=== PATIENT | male | born 1950 | race Caucasian/White ===

== ENCOUNTER 2020-10-08 06:03 | Observation (INO) | payer MEDICARE ==
[~2020-10-08] VITALS: Ht 177.8 cm; Wt 105.7 kg
[2020-10-08] VITALS (8 sets, daily range): BP systolic 143–171; BP diastolic 71–86
[~2020-10-08 06:03] MED LIST: SODIUM CHLORIDE 0.9% 1,000 ML IV ONE; SODIUM CHLORIDE 0.9% 1,000 ML ONE
[2020-10-08 06:54] LABS: BASOPHILS % (AUTO) 0.4 % (0.0-2.0); EOSINOPHILS % (AUTO) 0 % (1.0-6.0); HEMATOCRIT 38.3 % (41-53); HEMOGLOBIN 12.9 g/dL (13.5-17.5); LYMPHOCYTES # (AUTO) 2.6 K/uL (1.0-4.8); MEAN CORPUSCULAR HEMOGLOBIN 30.5 pg (26.0-34.0); MEAN CORPUSCULAR HGB CONC 33.6 G/dL (31.0-37.0); MEAN CORPUSCULAR VOLUME 91 fL (80-100); MONOCYTES # (AUTO) 0.6 K/uL (0.1-1.0); MONOCYTES % (AUTO) 8.1 % (2.0-9.0); NEUTROPHILS # (AUTO) 4.1 K/uL (1.8-7.7); NEUTROPHILS % (AUTO) 56.5 % (40.0-70.0); PLATELET COUNT (AUTO) 168 K/uL (150-450); RED BLOOD CELL COUNT(AUTO) 4.21 MIL/uL (4.50-5.90); RED CELL DISTRIBUTION WIDTH 12.8 % (11.5-14.5)
[2020-10-08 07:05] LABS: CREATININE 1.25 mg/dL (0.60-1.30); POTASSIUM 4.4 mmol/L (3.5-5.1)
[2020-10-08] MEDS ORDERED: LEVO50TA11 PO (07:08)
[2020-10-08] MEDS ORDERED: TAMS-13 PO (07:08)
[2020-10-08] MEDS ORDERED: CARV25TA32 PO (07:08)
[2020-10-08] MEDS ORDERED: ASPI-1450 PO (07:08)
[2020-10-08] MEDS ORDERED: CLOP75TA32 PO (07:08)
[2020-10-08] MEDS ORDERED: METF-446 PO (07:08)
[2020-10-08] MEDS ORDERED: ISOS30TA92 PO (07:08)
[2020-10-08] MEDS ORDERED: FINA5TAB41 PO (07:08)
[2020-10-08] MEDS ORDERED: CARB200T6 PO (07:08)
[2020-10-08] MEDS ORDERED: ATOR-2 PO (07:08)
[2020-10-08] MEDS ORDERED: INSU3INS3 SQ (07:08)
[2020-10-08] MEDS ORDERED: EZET10TA13 PO (07:08)
[2020-10-08] MEDS ORDERED: INSU3INS5 SQ (07:08)
[2020-10-08 07:14] LABS: INR 1.1 (0.9-1.1); PROTHROMBIN TIME 11.3 SEC (9.4-11.6)
[2020-10-08] MEDS ORDERED: HEPARIN SODIUM 1000 UNITS/NS 1,000 ML ONE (09:40)
[2020-10-08] MEDS ORDERED: LIDOCAINE/PF 1% 30 ML VIAL ONE (09:40)
[2020-10-08] MEDS ORDERED: IOHEXOL 300 MG/ML 150 ML VIAL ONE (09:40)
[2020-10-08] MEDS ORDERED: SODIUM BICARBONATE 50 MEQ/50 ML VIAL ONE (09:40)
[2020-10-08] MEDS ORDERED: FentaNYL CITRATE PF 100 MCG/2 ML VIAL ONE (10:15)
[2020-10-08] MEDS ORDERED: MIDAZOLAM HCL 2 MG/2 ML VIAL ONE (10:15)
[2020-10-08] MEDS ORDERED: MIDAZOLAM HCL 2 MG/2 ML VIAL IVP ONE (10:30)
[2020-10-08] MEDS ORDERED: IOHEXOL 300 MG/ML 150 ML VIAL IARTER ONE (10:30)
[2020-10-08] MEDS ORDERED: LIDOCAINE 1% 30 ML/SOD BICARB 8.4% 4 ML SQ ONE (10:30)
[2020-10-08] MEDS ORDERED: HEPARIN SODIUM 1000 UNITS/NS 1,000 ML IARTER ONE (10:30)
[2020-10-08] MEDS ORDERED: FentaNYL CITRATE PF 100 MCG/2 ML VIAL IVP ONE (10:30)
[2020-10-08] MEDS ORDERED: IOHEXOL 300 MG/ML 100 ML VIAL ONE ×2 (10:39→10:57)
[2020-10-08] MEDS ORDERED: HEPARIN SODIUM 1000 UNITS/NS 500 ML ONE (10:39)
[2020-10-08] MEDS ORDERED: HEPARIN SODIUM,PORCINE 5,000 UNITS/ML VIAL IVP ONE (10:45)
[2020-10-08] MEDS ORDERED: NITROGLYCERIN 50 MG/D5% WATER 250 ML ONE (11:00)
[2020-10-08] MEDS ORDERED: HEPARIN SODIUM,PORCINE 1,000 UNITS/ML 10 ML VIAL IVP ONE (11:00)
[2020-10-08] MEDS ORDERED: TICAGRELOR 90 MG TABLET ONE (11:09)
[2020-10-08] MEDS ORDERED: NITROGLYCERIN/D5W 50 MG/250 ML IV BOTTLE ICOR ONE (11:15)
[2020-10-08] MEDS ORDERED: TICAGRELOR 90 MG TABLET PO ONE (11:15)
[2020-10-08] MEDS ORDERED: IOHEXOL 300 MG/ML 100 ML VIAL IARTER ONE (11:15)
[2020-10-08] MEDS ORDERED: TEST75GE10 TP (11:17)
[2020-10-08] MEDS ORDERED: BISACODYL 10 MG RECTAL RECTAL SUPPOSITORY PR PRN (11:45)
[2020-10-08] MEDS ORDERED: IPRATROPIUM BROMIDE 0.5 MG/2.5 ML NEB SOLUTION NEB PRN (11:45)
[2020-10-08] MEDS ORDERED: OxyCODONE HCL/ACETAMINOPHEN 5-325 MG TABLET PO PRN (11:45)
[2020-10-08] MEDS ORDERED: ALBUTEROL SULFATE 2.5 MG/0.5 ML NEB SOLUTION NEB PRN (11:45)
[2020-10-08] MEDS ORDERED: ONDANSETRON HCL 4 MG/2 ML VIAL IVP PRN (11:45)
[2020-10-08] MEDS ORDERED: ACETAMINOPHEN 325 MG TABLET PO PRN (11:45)
[2020-10-08] MEDS ORDERED: DOCUSATE SODIUM 100 MG CAPSULE PO PRN (11:45)
[2020-10-08] MEDS ORDERED: DEXTROSE 50%-WATER 25 GM/50 ML SYRINGE IVP PRN (11:45)
[2020-10-08] MEDS ORDERED: 0.9% SODIUM CHLORIDE 10 ML SYRINGE IVP PRN (11:45)
[2020-10-08 13:36] LABS: GLUCOMETER DEV NAME(LOC) SDS.; GLUCOSE,POINT OF CARE 205 MG/DL (70-110)
[2020-10-08] MEDS: INSULIN LISPRO 100 UNITS/ML SQ PRN ×3 (14:14→20:18)
[2020-10-08] MEDS ORDERED: HydrALAZINE HCL 20 MG/ML VIAL IVP PRN (14:30)
[2020-10-08] MEDS: CARVEDILOL 25 MG TABLET PO SCH ×2 (14:34→20:19)
[2020-10-08] MEDS: FAMOTIDINE 20 MG TABLET PO SCH ×2 (14:34→20:19)
[2020-10-08] MEDS: CarBAMazepine 200 MG TABLET PO SCH (20:19)
[2020-10-08] MEDS: TICAGRELOR 90 MG TABLET PO SCH (20:19)
[2020-10-08] MEDS ORDERED: CARVEDILOL 25 MG TABLET PO SCH (21:00)
[2020-10-09 00:01] VITALS: BP 136/64
[2020-10-09 04:12] VITALS: BP 148/81
[2020-10-09] MEDS ORDERED: LEVOTHYROXINE SODIUM 50 MCG TABLET PO SCH (06:30)
[2020-10-09] MEDS: INSULIN LISPRO 100 UNITS/ML SQ PRN ×2 (06:50→11:26)
[2020-10-09 07:55] VITALS: BP 149/73
[2020-10-09 07:56] LABS: BASOPHILS % (AUTO) 0.1 % (0.0-2.0); EOSINOPHILS % (AUTO) 0 % (1.0-6.0); HEMATOCRIT 35.9 % (41-53); HEMOGLOBIN 12.1 g/dL (13.5-17.5); LYMPHOCYTES # (AUTO) 1.7 K/uL (1.0-4.8); LYMPHOCYTES % (AUTO) 25.6 % (22.0-44.0); MEAN CORPUSCULAR HEMOGLOBIN 30.7 pg (26.0-34.0); MEAN CORPUSCULAR HGB CONC 33.7 G/dL (31.0-37.0); MEAN CORPUSCULAR VOLUME 91 fL (80-100); MONOCYTES # (AUTO) 0.6 K/uL (0.1-1.0); MONOCYTES % (AUTO) 8.6 % (2.0-9.0); NEUTROPHILS # (AUTO) 4.3 K/uL (1.8-7.7); NEUTROPHILS % (AUTO) 65.7 % (40.0-70.0); PLATELET COUNT (AUTO) 158 K/uL (150-450); RED BLOOD CELL COUNT(AUTO) 3.95 MIL/uL (4.50-5.90); RED CELL DISTRIBUTION WIDTH 12.7 % (11.5-14.5)
[2020-10-09] MEDS: CARVEDILOL 25 MG TABLET PO SCH (07:56)
[2020-10-09] MEDS: FAMOTIDINE 20 MG TABLET PO SCH (07:56)
[2020-10-09] MEDS: CarBAMazepine 200 MG TABLET PO SCH (07:56)
[2020-10-09] MEDS: TICAGRELOR 90 MG TABLET PO SCH (07:56)
[2020-10-09 08:10] LABS: CALCIUM, TOTAL 8.5 mg/dL (8.8-10.5); CREATININE 1.26 mg/dL (0.60-1.30); POTASSIUM 4.2 mmol/L (3.5-5.1)
[2020-10-09] MEDS ORDERED: ASPIRIN 81 MG CHEWABLE TABLET PO SCH (09:00)
[2020-10-09] MEDS ORDERED: ATORVASTATIN CALCIUM 40 MG TABLET PO SCH (09:00)
[2020-10-09] MEDS ORDERED: ISOSORBIDE MONONITRATE 30 MG ER TABLET PO SCH (09:00)
[2020-10-09] MEDS ORDERED: FINASTERIDE 5 MG TABLET PO SCH (09:00)
[2020-10-09] MEDS ORDERED: EZETIMIBE 10 MG TABLET PO SCH (09:00)
[2020-10-09] MEDS ORDERED: [UNRECOGNIZED DRUG - OTHER] TP SCH (09:00)
[2020-10-09] MEDS ORDERED: TAMSULOSIN HCL 0.4 MG CAPSULE PO SCH (09:00)
[2020-10-09 12:01] VITALS: BP 115/59
[2020-10-09] MEDS ORDERED: TICA90TA PO (12:05)
[2020-10-10 16:03] LABS: GLUCOMETER DEV NAME(LOC) 5N.3; GLUCOSE,POINT OF CARE 244 MG/DL (70-110)
[2020-10-10 16:03] LABS: GLUCOMETER DEV NAME(LOC) 5N.3; GLUCOSE,POINT OF CARE 221 MG/DL (70-110)
[2020-10-29 12:02] LABS: GLUCOMETER DEV NAME(LOC) 5S.2B; GLUCOSE,POINT OF CARE 191 MG/DL (70-110)
[2020-10-29 12:03] LABS: GLUCOMETER DEV NAME(LOC) 5S.2B; GLUCOSE,POINT OF CARE 183 MG/DL (70-110)
== END 2020-10-09 13:50 | disposition home or self-care (01) ==
LOC: CATHLAB 06:03 → INTOOBSV 13:25 → 5S 13:25
PROVIDERS: ADMIT Internal Medicine; ATTEND Internal Medicine
DX: I25.110 Atherosclerotic heart disease of native coronary artery with unstable angina pectoris (principal); E11.9 Type 2 diabetes mellitus without complications; E78.5 Hyperlipidemia, unspecified; N40.0 Benign prostatic hyperplasia without lower urinary tract symptoms; I11.9 Hypertensive heart disease without heart failure; E66.9 Obesity, unspecified; Z68.21 Body mass index [BMI] 21.0-21.9, adult; Z79.01 Long term (current) use of anticoagulants; Z79.82 Long term (current) use of aspirin
CPT/HCPCS: 36415 ×2; 80048 ×2; 82962 ×2; 85025 ×2; 85610; 85730; 87081; 92920; 92928; 93005; 93458; 99219 ×2; C1769; C1874; C1887; J1644; J2250; J3010; J3490 ×3; J7030; Q9967 ×2; G0378